=== PATIENT | female | born 1990 | race Caucasian/White ===

== ENCOUNTER 2018-06-25 22:06 | Emergency (ER) | payer MEDICAID ==
--- NOTE | 2018-06-25 22:18 | Emergency Department Record ---
History of Present Illness - General Chief complaint: GI Bleed Stated complaint: BLOODY STOOL Time Seen by Provider: 06/25/18 22:08 Source: Patient Mode of Arrival: Ambulatory Limitations: No limitations - History of Present Illness Initial comments: 27 yo female presents to ED for evaluation of "abdominal cramping for over 2 years", reports intermittent blood in the stool that has worsened over the past several days. Patient reports that her PCP ordered a CT of the abdomen with oral contrast which was "negative for crohn's". Patient reports previous cholecystectomy, denies health problems at her baseline. Patient does report pain with her stools. MD complaint: Blood streaked stool -: Month(s) Quality: Sharp Consistency: Intermittent Improves with: None Worsens with: Bowel movement Associated Symptoms: Denies other symptoms Treatments Prior to Arrival: None - Related Data Allergies Allergy/AdvReac Type Severity Reaction Status Date / Time topiramate Allergy Severe mood Unverified 06/10/18 20:02 changes Review of Systems Constitutional: Denies: Chills, Fever, Malaise, Night sweats Eyes: Denies: Eye discharge, Eye pain ENT: Denies: Congestion, Ear pain, Epistaxis Respiratory: Denies: Cough, Dyspnea Cardiovascular: Denies: Chest pain, Dyspnea on exertion Endocrine: Denies: Fatigue, Heat or cold intolerance Gastrointestinal: Reports: Abdominal pain, Hematochezia. Denies: Constipation, Diarrhea, Nausea, Vomiting Genitourinary: Denies: Incontinence, Retention Musculoskeletal: Denies: Arthralgia, Back pain Skin: Denies: Bruising, Change in color Neurological: Denies: Abnormal gait, Confusion, Headache, Seizure Psychiatric: Denies: Anxiety Hematological/Lymphatic: Denies: Anemia, Blood Clots Past Medical History - SOCIAL HISTORY Smoking Status: Never smoker - RESPIRATORY Hx Respiratory Disorders: No - CARDIOVASCULAR Hx Cardio Disorders: No - NEURO Hx Neuro Disorders: No - GI Hx GI Disorders: No - Hx Genitourinary Disorders: No - ENDOCRINE Hx Endocrine Disorders: No - MUSCULOSKELETAL Hx Musculoskeletal Disorders: Yes Comment:: Spina bifada - PSYCH Hx Psych Problems: No - HEMATOLOGY/ONCOLOGY Hx Hematology/Oncology Disorders: No Physical Exam - General General Appearance: Alert, Oriented x3, Cooperative, No acute distress, Other ( Smiling, well appearing, no peritoneal signs, guarding, or rebound on examination.) Limitations: No limitations - Head Head exam: Atraumatic, Normocephalic, Normal inspection Head exam detail: negative: Abrasion, Contusion, Reid's sign, General tenderness, Hematoma, Laceration - Eye Eye exam: Normal appearance. negative: Conjunctival injection, Periorbital swelling, Periorbital tenderness, Scleral icterus - ENT Ear exam: negative: Auricular hematoma, Auricular trauma Nasal Exam: negative: Active bleeding, Discharge, Dried blood, Foreign body Mouth exam: negative: Drooling, Laceration, Muffled voice, Tongue elevation - Neck Neck exam: Normal inspection. negative: Meningismus, Tenderness - Respiratory Respiratory exam: Normal lung sounds bilaterally. negative: Rales, Respiratory distress, Rhonchi, Stridor - Cardiovascular Cardiovascular Exam: Regular rate, Normal rhythm, Normal heart sounds - GI/Abdominal GI/Abdominal exam: Soft. negative: Distended, Guarding, Rebound, Rigid, Tenderness - Rectal Rectal exam: Bloody stool, Heme (+) stool, Tenderness. negative: Hemorrhoids - exam: Deferred - Extremities Extremities exam: Normal inspection. negative: Calf tenderness, Pedal edema, Tenderness - Back Back exam: Denies: CVA tenderness (R), CVA tenderness (L) - Neurological Neurological exam: Alert, Normal gait, Oriented X3 - Psychiatric Psychiatric exam: Normal affect, Normal mood - Skin Skin exam: Normal color. negative: Abrasion Type of lesion: negative: abrasion Course Vital Signs 06/25/18 22:12 Temperature 97.8 F Pulse Rate [ 71 Left] Respiratory 16 Rate Blood Pressure 125/88 [Left Arm] Pulse Ox 96 - Reevaluation(s) Reevaluation #1: 06/25/18 22:46 Laboratory studies were reviewed and are grossly unremarkable for an acute process. Reevaluation #2: 06/25/18 23:18 CT Abdomen and Pelvis: No acute abnormality Hepatomegaly No evidence for appendicitis L5-S1 anterolisthesis Patient was updated on all results, appears to be resting comfortably at this time. Will refer the patient for GI follow-up and possible colonoscopy to determine the source of her LGI bleeding symptoms. Medical Decision Making - Lab Data Result diagrams: 06/25/18 22:25 06/25/18 22:25 Disposition Disposition: Discharge Clinical Impression: Lower GI bleed Disposition: Home, Self-Care Condition: (2) Stable Instructions: Gastrointestinal Bleeding (ED) Additional Instructions: Return to ED if your symptoms worsen or if you have any concerns. Follow-up with your family doctor in 3-5 days as directed. Referrals: NARCISA SCHOFIELD [DOCTOR OF OSTEOPATH] - [facility] [Provider Group] Forms: Patient Portal Access Time of Disposition: 23:04 Quality - Quality Measures Quality Measures: N/A - Blood Pressure Screening Does Patient Have Any of the Following: No Blood Pressure Classification: Pre-Hypertensive BP Reading Systolic Measurement: 125 Diastolic Measurement: 88 Screening for High Blood Pressure: < Pre-Hypertensive BP, F/U Documented > [ G8950] Pre-Hypertensive Follow-up Interventions: Referral to alternative/primary care provider.
[2018-06-25 22:29] LABS: BASO % 0.3 % (0-6); EOS % 1.8 % (0-6); GRAN % 51.9 % (47-80); HEMATOCRIT 38.7 % (35.0-47.0); HEMOGLOBIN 12.7 gm/dl (11.6-16.0); LYMPH % 36.5 % (16-45); MEAN CELL VOLUME 94.2 fl (81-97); MEAN CORPUSCULAR HEMOGLOBIN 30.9 pg (27-33); MEAN CORPUSCULAR HGB CONC 32.8 g/dl (32-36); MEAN PLATELET VOLUME 10.3 fl (7.4-10.4); MONO % 9.5 % (0-9); PLATELET COUNT 298 K/uL (130-400); RED BLOOD COUNT 4.11 M/uL (3.80-5.40); RED CELL DISTRIBUTION WIDTH 12.1 % (11.5-14.5); WHITE BLOOD COUNT W/O DIFF 6.7 K/uL (4.2-12.2)
[2018-06-25 22:37] LABS: BLOOD UREA NITROGEN 22 mg/dL (6-20); CREATININE 0.6 mg/dL (0.5-0.9); EST GLOMERULAR FILTRATION RATE > 60 mL/min
[2018-06-25 22:38] LABS: TOTAL PROTEIN 7.2 g/dL (6.6-8.7)
[2018-06-25 22:40] LABS: GLUCOSE,RANDOM 99 mg/dL (74-109)
[2018-06-25 22:43] LABS: ALB/GLOB RATIO 1.7 (1.1-1.8); ALBUMIN 4.5 g/dL (4.0-5.0); ALKALINE PHOSPHATASE 82 U/L (35-104); ALT/SGPT 60 U/L (<33); AST/SGOT 29 U/L (10.0-35.0)
--- NOTE | 2018-06-28 20:17 | CT SCAN REPORT ---
EXAM: CT SCAN ABDOMEN/PELVIS W CONTRAST HISTORY: PATIENT HAS CRAMPING AND PAIN WITH BOWEL MOVEMENTS. TECHNIQUE: Serial axial CT scan of the abdomen and pelvis was performed at 2.5 mm intervals from the dome of the diaphragm down to the pubic symphysis following the intravenous administration of 100 mL of Omnipaque-300. COMPARISON: Comparison study dated 01/27/2013 is provided. FINDINGS: Lung windows of the lung bases demonstrate no CT evidence for focal infiltrate or pleural effusion. The visualized heart size and contour is within normal limits. Diffuse fatty infiltration is noted within the liver. Size and contour of the liver is within normal limits. No suspicious hepatic lesions are identified. The visualized spleen, pancreas, bilateral adrenal glands are unremarkable. Cholecystectomy clips are identified within the right upper quadrant. The bilateral kidneys demonstrate no CT evidence of hydronephrosis or hydroureter. No renal or ureteral calculi are noted. The contour, caliber, and flow within the abdominal aorta is within normal limits. There is no CT evidence of retroperitoneal, pelvic, or inguinal lymphadenopathy. The bowel gas pattern is nonspecific and nonobstructive. The appendix is clearly visualized and there is no CT evidence of appendicitis. Of note is that the patient has a redundant cecum, which is located adjacent to the rectum in the rectouterine space. This finding may create patient's symptoms. Clinical correlation is recommended. There is no CT evidence of free intraperitoneal fluid or free intraperitoneal air. The abdominal wall is unremarkable. Urinary bladder is partially decompressed. The uterus demonstrates a T-shaped intrauterine contraceptive device. Bone windows demonstrate bilateral L5 pars laminar defects with minimal spondylolisthesis at the L5-S1 disc space level. IMPRESSION: 1. NONSPECIFIC NONOBSTRUCTIVE BOWEL GAS PATTERN. NO CT EVIDENCE OF APPENDICITIS. OF NOTE IS THAT THE PATIENT HAS A REDUNDANT CECUM, WHICH INTERPOSES BETWEEN THE RECTUM AND THE UTERUS. THIS MAY CREATE THE PATIENT'S SYMPTOMS. CLINICAL CORRELATION IS RECOMMENDED. 2. BILATERAL L5 PARS LAMINAR DEFECTS. 3. HEPATIC STEATOSIS. JOB NUMBER: [id number] [facility]
== END 2018-06-25 23:26 | disposition home or self-care (01) ==
LOC: ER 22:06
DX: K92.1 Melena (principal); R10.9 Unspecified abdominal pain
CPT/HCPCS: 99283; 99284; 85025; 80053; 74177; Q9967

== ENCOUNTER 2018-08-05 10:11 | Emergency (ER) | payer MEDICAID ==
[2018-08-05] MEDS ORDERED: ONDANSETRON HCL IV 4 MG/2 ML VIAL IVP ONE (10:18)
[2018-08-05] MEDS ORDERED: 0.9 % SODIUM CHLORIDE 1,000 ML BAG IV ONE ×2 (10:18→11:29)
[2018-08-05] MEDS ORDERED: PANTOPRAZOLE SODIUM IV 40 MG VIAL IVP ONE (10:18)
[2018-08-05] MEDS ORDERED: PROMETHAZINE HCL 12.5 MG in 0.9 % SODIUM CHLORIDE 100ML 100 ML IVPB ONE (10:25)
[2018-08-05] MEDS ORDERED: DIPHENHYDRAMINE HCL 50 MG/ML VIAL IVP ONE (10:25)
--- NOTE | 2018-08-05 10:25 | Emergency Department Record ---
History of Present Illness - General Chief complaint: Vomiting Stated complaint: VOMITING Time Seen by Provider: 08/05/18 10:14 Source: Patient Mode of Arrival: Wheelchair Limitations: No limitations - History of Present Illness Initial comments: 27 yo presents now feeling well since Thursday. She has had nausea, vomiting and diarrhea. No blood in the stools. No fevers. The stool is watery. She has had her gall bladder removed in the past. She has GERD as well. She does have some waives of cramps mostly in the lower abdomen. No current upper pain. No recent antibiotics. No known sick exposures. MD complaint: Abdominal pain, Nausea, Vomiting Onset/Timin -: Days(s) Description of Vomiting: Watery Description of Diarrhea: Water Associated Abdominal Pain: Yes Location: LLQ, RLQ Radiation: Other (lower abdomen) Severity scale (1-10): 6 Quality: Other Consistency: Constant Improves with: None Worsens with: Vomiting Context: Other Associated Symptoms: Nausea/vomiting - Related Data Previous Rx's Medication Instructions Recorded Promethazine HCl [Phenergan] 25 mg PO Q8H PRN #20 tablet 08/05/18 Allergies Allergy/AdvReac Type Severity Reaction Status Date / Time topiramate Allergy Severe mood Verified 08/05/18 10:17 changes Travel Screening - Travel/Exposure Within Last 30 Days Have you traveled within the last 30 days?: No Review of Systems Constitutional: Reports: Malaise, Weakness. Denies: Chills, Fever Eyes: Denies: Eye discharge ENT: Denies: Congestion, Throat pain Respiratory: Denies: Cough, Dyspnea, Hemoptysis, Stridor, Wheezes Cardiovascular: Denies: Chest pain, Palpitations, Syncope Endocrine: Reports: Fatigue. Denies: Polydipsia, Polyuria Gastrointestinal: Reports: Abdominal pain, Diarrhea, Nausea, Vomiting. Denies: Constipation, Hematemesis, Hematochezia, Melena Genitourinary: Denies: Dysuria, Urgency Musculoskeletal: Denies: Arthralgia, Back pain, Myalgia Skin: Denies: Bruising, Change in color, Rash Neurological: Denies: Headache Psychiatric: Denies: Anxiety Hematological/Lymphatic: Denies: Easy bleeding, Easy bruising Past Medical History - SOCIAL HISTORY Smoking Status: Never smoker - RESPIRATORY Hx Respiratory Disorders: Yes Hx Asthma: Yes - CARDIOVASCULAR Hx Cardio Disorders: No - NEURO Hx Neuro Disorders: No - GI Hx GI Disorders: No Hx Rectal Bleeding: Yes ([id number]) Comment:: chronic constipation - Hx Genitourinary Disorders: No - ENDOCRINE Hx Endocrine Disorders: No - MUSCULOSKELETAL Hx Musculoskeletal Disorders: Yes Comment:: Spina bifada - PSYCH Hx Psych Problems: Yes Hx Anxiety: Yes - HEMATOLOGY/ONCOLOGY Hx Hematology/Oncology Disorders: No Family Medical History Any Significant Family History?: No Physical Exam - General General Appearance: Alert, Oriented x3, Cooperative, No acute distress Limitations: No limitations - Head Head exam: Atraumatic, Normal inspection - Eye Eye exam: Normal appearance, PERRL. negative: Conjunctival injection, Scleral icterus - ENT ENT exam: Normal exam Ear exam: Normal external inspection Nasal Exam: Normal inspection Mouth exam: Normal external inspection - Neck Neck exam: Normal inspection - Respiratory Respiratory exam: Normal lung sounds bilaterally. negative: Respiratory distress - Cardiovascular Cardiovascular Exam: Regular rate, Normal rhythm, Normal heart sounds - GI/Abdominal GI/Abdominal exam: Soft, Normal bowel sounds, Tenderness (very mild epigastric tenderness, ). negative: Distended, Guarding, Rebound, Rigid - Rectal Rectal exam: Deferred - exam: Deferred - Extremities Extremities exam: Normal inspection. negative: Tenderness - Back Back exam: Denies: CVA tenderness (R), CVA tenderness (L) - Neurological Neurological exam: Alert, Oriented X3 - Psychiatric Psychiatric exam: Normal affect, Normal mood - Skin Skin exam: Dry, Intact, Normal color, Warm Course Vital Signs 08/05/18 10:13 Temperature 98.2 F Pulse Rate 117 H Respiratory 20 Rate Blood Pressure 120/92 Pulse Ox 96 - Reevaluation(s) Reevaluation #1: The labs results were reviewed There are no acute significant abnormalities of the CBC The CMP demonstrates possible dehydration with mild increase in transaminases. She has normal bili and alk phos. She had a prior cholecystectomy 08/05/18 11:30 08/05/18 13:21 No vomiting in the ED One loose stool in the ED The stool studies were all negative 08/05/18 13:22 We discussed the results of the tests and questions were answered at the time of discharge. The patient is doing well and is comfortable with DC. DC vitals were reviewed. We discussed at length reasons to immediately return to the ED as well as close follow up. The patient will call the PCP for close follow up of this ED visit to review this visit and the tests performed Medical Decision Making - Lab Data Result diagrams: 08/05/18 10:20 08/05/18 10:20 Disposition Disposition: Discharge Clinical Impression: Vomiting and diarrhea Disposition: Home, Self-Care Condition: (1) Good Instructions: Acute Nausea and Vomiting (ED), Acute Diarrhea (ED) Additional Instructions: Call your doctor for the next available follow up appointment Return to the ER for a recheck if worse, any new concerns or questions Take the prescriptions provided as directed Review this ER visit and the tests performed with your family doctor Prescriptions: Promethazine HCl [Phenergan] 25 mg PO Q8H PRN #20 tablet PRN Reason: Nausea Forms: Patient Portal Access Time of Disposition: 13:22 Quality - Quality Measures Quality Measures: N/A - Blood Pressure Screening Does Patient Have Any of the Following: No Blood Pressure Classification: Hypertensive Reading Systolic Measurement: 120 Diastolic Measurement: 92 Screening for High Blood Pressure: < Pre-Hypertensive BP, F/U Documented > [ G8950] Pre-Hypertensive Follow-up Interventions: Referral to alternative/primary care provider.
[2018-08-05 10:39] LABS: BASO % 0.3 % (0-6); EOS % 0.6 % (0-6); HEMATOCRIT 48.3 % (35.0-47.0); HEMOGLOBIN 16.9 gm/dl (11.6-16.0); MEAN CELL VOLUME 88.8 fl (81-97); MEAN PLATELET VOLUME 11.3 fl (7.4-10.4); MONO % 13.1 % (0-9); PLATELET COUNT 302 K/uL (130-400); RED BLOOD COUNT 5.44 M/uL (3.80-5.40); RED CELL DISTRIBUTION WIDTH 12.2 % (11.5-14.5); WHITE BLOOD COUNT W/O DIFF 8.9 K/uL (4.2-12.2)
[2018-08-05 10:51] LABS: BLOOD UREA NITROGEN 22 mg/dL (6-20); CREATININE 0.8 mg/dL (0.5-0.9); EST GLOMERULAR FILTRATION RATE > 60 mL/min
[2018-08-05 10:52] LABS: LIPASE 51 U/L (13-60); TOTAL PROTEIN 8.9 g/dL (6.6-8.7)
[2018-08-05 10:54] LABS: GLUCOSE,RANDOM 104 mg/dL (74-109)
[2018-08-05 10:57] LABS: ALB/GLOB RATIO 1.4 (1.1-1.8); ALBUMIN 5.2 g/dL (4.0-5.0); ALKALINE PHOSPHATASE 86 U/L (35-104); ALT/SGPT 90 U/L (<33); AST/SGOT 49 U/L (10.0-35.0)
[2018-08-05] MEDS ORDERED: POTASSIUM CHLORIDE 20 MEQ TABLET PO ONE (11:54)
[2018-08-05 12:50] LABS: CRYPTOSPORIDIUM PARVUM ANTIGEN NOT DETECTED (NOT DETECT)
[2018-08-05 12:51] LABS: GIARDIA LAMBLIA ANTIGEN NOT DETECTED (NOT DETECT)
[2018-08-05 13:19] LABS: URINE APPEARANCE CLEAR; URINE BILIRUBIN MODERATE (NEGATIVE); URINE BLOOD NEGATIVE (NEGATIVE); URINE COLOR YELLOW; URINE GLUCOSE (UA) NEGATIVE (NEGATIVE); URINE LEUKOCYTE ESTERASE NEGATIVE (NEGATIVE); URINE NITRITE NEGATIVE (NEGATIVE); URINE PROTEIN NEGATIVE (NEGATIVE); URINE UROBILINOGEN 0.2 E.U./dL (0.20 - 1.00)
[2018-08-05 13:20] LABS: ROTOVIRUS NOT DETECTED (NOT DETECT)
[2018-08-05 13:24] LABS: URINE KETONE 80 mg/dL (NEGATIVE)
[2018-08-05 18:42] LABS: HCG,QUALITATIVE URINE NEGATIVE (NEGATIVE)
--- NOTE | 2018-08-06 09:21 | Emergency Department Record ---
History of Present Illness - General Chief complaint: Vomiting Stated complaint: VOMITING Time Seen by Provider: 08/05/18 10:14 Source: Patient Mode of Arrival: Wheelchair Limitations: No limitations - History of Present Illness MD complaint: Abdominal pain, Nausea, Vomiting Onset/Timin -: Days(s) Description of Vomiting: Watery Description of Diarrhea: Water Associated Abdominal Pain: Yes Location: LLQ, RLQ Radiation: Other (lower abdomen) Severity scale (1-10): 6 Quality: Other Consistency: Constant Improves with: None Worsens with: Vomiting Context: Other Associated Symptoms: Nausea/vomiting - Related Data Previous Rx's Medication Instructions Recorded Promethazine HCl [Phenergan] 25 mg PO Q8H PRN #20 tablet 08/05/18 Allergies Allergy/AdvReac Type Severity Reaction Status Date / Time topiramate Allergy Severe mood Verified 08/05/18 10:17 changes Travel Screening - Travel/Exposure Within Last 30 Days Have you traveled within the last 30 days?: No Review of Systems Constitutional: Reports: Malaise, Weakness. Denies: Chills, Fever Eyes: Denies: Eye discharge ENT: Denies: Congestion, Throat pain Respiratory: Denies: Cough, Dyspnea, Hemoptysis, Stridor, Wheezes Cardiovascular: Denies: Chest pain, Palpitations, Syncope Endocrine: Reports: Fatigue. Denies: Polydipsia, Polyuria Gastrointestinal: Reports: Abdominal pain, Diarrhea, Nausea, Vomiting. Denies: Constipation, Hematemesis, Hematochezia, Melena Genitourinary: Denies: Dysuria, Urgency Musculoskeletal: Denies: Arthralgia, Back pain, Myalgia Skin: Denies: Bruising, Change in color, Rash Neurological: Denies: Headache Psychiatric: Denies: Anxiety Hematological/Lymphatic: Denies: Easy bleeding, Easy bruising Past Medical History - SOCIAL HISTORY Smoking Status: Never smoker - RESPIRATORY Hx Respiratory Disorders: Yes Hx Asthma: Yes - CARDIOVASCULAR Hx Cardio Disorders: No - NEURO Hx Neuro Disorders: No - GI Hx GI Disorders: No Hx Rectal Bleeding: Yes ([id number]) Comment:: chronic constipation - Hx Genitourinary Disorders: No - ENDOCRINE Hx Endocrine Disorders: No - MUSCULOSKELETAL Hx Musculoskeletal Disorders: Yes Comment:: Spina bifada - PSYCH Hx Psych Problems: Yes Hx Anxiety: Yes - HEMATOLOGY/ONCOLOGY Hx Hematology/Oncology Disorders: No Family Medical History Any Significant Family History?: No Physical Exam - General General Appearance: Alert, Oriented x3, Cooperative, No acute distress Limitations: No limitations - Head Head exam: Atraumatic, Normal inspection - Eye Eye exam: Normal appearance. negative: Conjunctival injection - ENT ENT exam: Normal exam Ear exam: Normal external inspection Nasal Exam: Normal inspection Mouth exam: Normal external inspection Teeth exam: Normal inspection - Neck Neck exam: Normal inspection - Respiratory Respiratory exam: Normal lung sounds bilaterally. negative: Respiratory distress, Rhonchi, Stridor, Wheezes - Cardiovascular Cardiovascular Exam: Normal rhythm, Normal heart sounds, Tachycardia - GI/Abdominal GI/Abdominal exam: Soft, Tenderness (Mild mid abdominal tenderness, but very soft abdomen, no focal tenderness). negative: Distended, Guarding, Rebound, Rigid - Rectal Rectal exam: Deferred - exam: Deferred - Extremities Extremities exam: negative: Calf tenderness, Tenderness - Back Back exam: Denies: CVA tenderness (R), CVA tenderness (L), Tenderness - Neurological Neurological exam: Alert, Normal gait, Oriented X3 - Psychiatric Psychiatric exam: Normal affect, Normal mood - Skin Skin exam: Dry, Intact, Normal color, Warm Course Vital Signs 08/05/18 08/05/18 08/05/18 10:13 11:55 13:32 Temperature 98.2 F 98.3 F Pulse Rate 117 H Pulse Rate [ 88 91 H Pulse Ox Probe] Respiratory 20 18 18 Rate Blood Pressure 120/92 Blood Pressure 107/64 107/70 [Right Arm] Pulse Ox 96 100 97 Medical Decision Making - Lab Data Result diagrams: 08/05/18 10:20 08/05/18 10:20 Lab Results 08/05/18 08/05/18 08/05/18 Range/Units 10:20 10:20 12:47 WBC 8.9 (4.2-12.2) K/uL RBC 5.44 H (3.80-5.40) M/uL Hgb 16.9 H (11.6-16.0) gm/dl Hct 48.3 H (35.0-47.0) % MCV 88.8 (81-97) fl MCH 31.0 (27-33) pg MCHC 35.0 (32-36) g/dl RDW 12.2 (11.5-14.5) % Plt Count 302 (130-400) K/uL MPV 11.3 H (7.4-10.4) fl Gran % 71.0 (47-80) % Lymphocytes % 15.0 L (16-45) % Monocytes % 13.1 H (0-9) % Eosinophils % 0.6 (0-6) % Basophils % 0.3 (0-6) % Sodium 138 (136-145) mmol/L Potassium 3.0 L (3.4-4.5) mmol/L Chloride 102 (98-107) mmol/L Carbon Dioxide 19.0 L (22-29) mmol/L Anion Gap 17.0 H (7-16) BUN 22 H (6-20) mg/dL Creatinine 0.8 (0.5-0.9) mg/dL Estimated GFR > 60 mL/min Random Glucose 104 (74-109) mg/dL Calcium 10.0 (8.6-10.0) mg/dL Total Bilirubin 0.50 (0.2-1.0) mg/dL AST 49 H (10.0-35.0) U/L ALT 90 H (<33) U/L Alkaline Phosphatase 86 (35-104) U/L Total Protein 8.9 H (6.6-8.7) g/dL Albumin 5.2 H (4.0-5.0) g/dL Globulin 3.7 (1.4-4.8) gm/dL Albumin/Globulin Ratio 1.4 (1.1-1.8) Lipase 51 (13-60) U/L Urine Color Urine Appearance Urine pH (5.0-8.0) Ur Specific [place] (1.002-1.030) Urine Protein (NEGATIVE) Urine Glucose (UA) (NEGATIVE) Urine Ketones (NEGATIVE) Urine Blood (NEGATIVE) Urine Nitrite (NEGATIVE) Urine Bilirubin (NEGATIVE) Urine Urobilinogen (0.20 - 1.00) E.U./dL Ur Leukocyte Esterase (NEGATIVE) Urine HCG, Qual (NEGATIVE) Stool Occult Blood (NEGATIVE) Stool for White Cells No wbc's observed (NO WBC'S) Rotavirus Antigen (NOT DETECT) C. difficile Ag & Toxin Cryptosporid parvum Ag (NOT DETECT) Giardia lamblia Ag (NOT DETECT) 08/05/18 08/05/18 08/05/18 Range/Units 12:47 12:47 13:16 WBC (4.2-12.2) K/uL RBC (3.80-5.40) M/uL Hgb (11.6-16.0) gm/dl Hct (35.0-47.0) % MCV (81-97) fl MCH (27-33) pg MCHC (32-36) g/dl RDW (11.5-14.5) % Plt Count (130-400) K/uL MPV (7.4-10.4) fl Gran % (47-80) % Lymphocytes % (16-45) % Monocytes % (0-9) % Eosinophils % (0-6) % Basophils % (0-6) % Sodium (136-145) mmol/L Potassium (3.4-4.5) mmol/L Chloride (98-107) mmol/L Carbon Dioxide (22-29) mmol/L Anion Gap (7-16) BUN (6-20) mg/dL Creatinine (0.5-0.9) mg/dL Estimated GFR mL/min Random Glucose (74-109) mg/dL Calcium (8.6-10.0) mg/dL Total Bilirubin (0.2-1.0) mg/dL AST (10.0-35.0) U/L ALT (<33) U/L Alkaline Phosphatase (35-104) U/L Total Protein (6.6-8.7) g/dL Albumin (4.0-5.0) g/dL Globulin (1.4-4.8) gm/dL Albumin/Globulin Ratio (1.1-1.8) Lipase (13-60) U/L Urine Color Yellow Urine Appearance Clear Urine pH 6.0 (5.0-8.0) Ur Specific [place] 1.025 (1.002-1.030) Urine Protein Negative (NEGATIVE) Urine Glucose (UA) Negative (NEGATIVE) Urine Ketones 80 mg/dl H (NEGATIVE) Urine Blood Negative (NEGATIVE) Urine Nitrite Negative (NEGATIVE) Urine Bilirubin Moderate H (NEGATIVE) Urine Urobilinogen 0.2 (0.20 - 1.00) E.U./dL Ur Leukocyte Esterase Negative (NEGATIVE) Urine HCG, Qual Negative (NEGATIVE) Stool Occult Blood Negative (NEGATIVE) Stool for White Cells (NO WBC'S) Rotavirus Antigen Not detected (NOT DETECT) C. difficile Ag & Toxin Cancelled Cryptosporid parvum Ag Not detected (NOT DETECT) Giardia lamblia Ag Not detected (NOT DETECT) Disposition Disposition: Discharge Clinical Impression: Vomiting and diarrhea Disposition: Home, Self-Care Condition: (1) Good Instructions: Acute Nausea and Vomiting (ED), Acute Diarrhea (ED) Additional Instructions: Call your doctor for the next available follow up appointment Return to the ER for a recheck if worse, any new concerns or questions Take the prescriptions provided as directed Review this ER visit and the tests performed with your family doctor Prescriptions: Promethazine HCl [Phenergan] 25 mg PO Q8H PRN #20 tablet PRN Reason: Nausea Forms: Patient Portal Access Time of Disposition: 16:00 Quality - Quality Measures Quality Measures: N/A - Blood Pressure Screening Does Patient Have Any of the Following: No Blood Pressure Classification: Hypertensive Reading Systolic Measurement: 120 Diastolic Measurement: 92 Screening for High Blood Pressure: < Pre-Hypertensive BP, F/U Documented > [ G8950] Pre-Hypertensive Follow-up Interventions: Referral to alternative/primary care provider.
== END 2018-08-05 13:50 | disposition home or self-care (01) ==
LOC: ER 10:11
DX: R11.2 Nausea with vomiting, unspecified (principal); R19.7 Diarrhea, unspecified
CPT/HCPCS: 80053; 81003; 81025; 82272; 83690; 85025; 87329; 87425; 89055; 96361; 96365; 96375; 99284; C9113; J1200; J2550; J7030